=== PATIENT | female | born 1965 | race Caucasian/White ===

== ENCOUNTER → 2016-09-18 | Outpatient (CLI) | payer MEDICAID | LOC: FIMAGING 12:44 | PROVIDERS: ATTEND Internal Medicine | DX: N63 Unspecified lump in breast (principal) ==

== ENCOUNTER → 2017-05-08 | Outpatient (CLI) | payer MEDICAID | LOC: FIMAGING 12:36 | PROVIDERS: ATTEND Internal Medicine | DX: R92.8 Other abnormal and inconclusive findings on diagnostic imaging of breast (principal); S63.072A Subluxation of distal end of left ulna, initial encounter; Y93.9 Activity, unspecified ==

== ENCOUNTER → 2017-08-31 | Outpatient (CLI) | payer MEDICAID | LOC: FIMAGING 12:08 | PROVIDERS: ATTEND Internal Medicine | DX: Z12.31 Encounter for screening mammogram for malignant neoplasm of breast (principal) ==